=== PATIENT | male | born 1945 | race African-American/Black ===

== ENCOUNTER 2018-04-02 16:02 | Observation (INO) | payer MEDICARE ==
[2018-04-02 18:32] LABS: Troponin I 0.016 ng/mL (< 0.028)
[2018-04-02] MEDS ORDERED: Senokot S 8.6-50 MG TAB PO PRN (20:59)
[2018-04-02] MEDS ORDERED: Acetaminophen 650 MG Suppository PR PRN (20:59)
[2018-04-02] MEDS ORDERED: Bisacodyl 5 MG TAB PO PRN (20:59)
[2018-04-02] MEDS ORDERED: Calcium Carbonate 500 MG ChewTAB PO PRN (20:59)
[2018-04-02] MEDS ORDERED: Acetaminophen 325 MG TAB PO PRN (20:59)
[2018-04-02] MEDS ORDERED: Nitroglycerin 0.4 MG TAB (25 Tab Bottle) PO PRN (20:59)
[2018-04-02 21:52] LABS: Troponin I 0.014 ng/mL (< 0.028)
[2018-04-03 00:43] LABS: #Basophils 0.1 thou/uL (0.0-0.2); #Eosinphils 0.1 thou/uL (0.0-0.7); #Lymphocytes 1.7 thou/uL (1.20-3.40); #Monocytes 0.2 thou/uL (0.11-0.59); #Neutrophils 1.6 thou/uL (1.40-6.50); %Basophils 1.9 % (0.0-1.0); %Eosinophils 1.7 % (0.0-10.0); %Lymphocytes 46.1 % (21.0-51.0); %Monocytes 6.3 % (0.0-10.0); Hemoglobin 12.4 g/dL (14.0-18.0); Mean Corpuscular HGB CONC 35.1 g/dL (32.0-36.0); Mean Corpuscular Hemoglobin 30.2 pg (27.0-31.0); Mean Platelet Volume 8.4 fL (7.4-10.4); Platelet Count 138 thou/uL (130-400); RBC Distribution Width 13.4 % (11.5-14.5); Red Blood Cell (RBC) Count 4.11 mill/uL (4.70-6.10); White Blood Cell (WBC) Count 3.7 thou/uL (4.8-10.8)
[2018-04-03 00:59] VITALS: BMI 29.0
[2018-04-03 01:02] LABS: Troponin I Less than 0.010 ng/mL (< 0.028)
[2018-04-03 01:05] LABS: Albumin 3.6 g/dL (3.4-4.8); Anion Gap 13 mmol/L (10-20); BUN (Urea Nitrogen) 18 mg/dL (8.4-25.7); BUN/Creatinine Ratio 11.69; Calc. Creatinine Clearance 65 mL/min (70-130); Calcium 8.9 mg/dL (7.8-10.44); Carbon Dioxide 24 mmol/L (23-31); Cardiac Risk 3.5 (Less than 4.5); Chloride 106 mmol/L (98-107); Cholesterol 129 mg/dl (< 200 Desired); Estimated GFR-MDRD 54; Glucose 263 mg/dL (80-115); HDL Cholesterol 37 mg/dL (>60 Neg Risk); LDL Cholesterol, Calculated 62 mg/dL; Phosphorus 3.5 mg/dL (2.3-4.7); Potassium 4.5 mmol/L (3.5-5.1); Sodium 138 mmol/L (136-145); Triglycerides 150 mg/dL (Less than 150)
[2018-04-03] MEDS: Famotidine/PF 20 mg/2ml Vial SLOW IVP SCH ×3 (01:48→20:10)
[2018-04-03] MEDS: Famotidine 20 MG TAB PO SCH ×3 (01:50→20:57)
[2018-04-03] MEDS: Sodium Chloride 0.9% 1,000 ML IV SCH ×3 (01:51→21:01)
[2018-04-03] MEDS: Nitroglycerin 2% Ointment 1 INCH/1 GM Packet TOP SCH ×4 (01:52→20:57)
--- NOTE | 2018-04-03 06:40 | HP ---
CHIEF COMPLAINT: Chest pain. HISTORY OF PRESENT ILLNESS: This is a 72-year-old male with past medical history significant for hypertension, diabetes mellitus type 2, and coronary artery disease, presenting with chest pain which is located substernal, 4/10 in nature. Patient stated that this chest pressure which started on the day of admission. Patient admits to using cocaine, opioids, and cannabinoids and states that now he has been having chest pain, status post using these polysubstance. The patient stated that the chest pain was left-sided, substernal, pressure-like in nature and radiated to the neck. At this point, patient denies any fever, chills, headaches, dizziness, chest pain, palpitations, abdominal pain, constipation, diarrhea, hematuria, dysuria, hematochezia, or melena. REVIEW OF SYSTEMS: All systems have been reviewed and are negative at this time. PAST MEDICAL HISTORY: 1. Diabetes mellitus type 2. 2. Hypertension. 3. Coronary artery disease. FAMILY HISTORY: Reviewed and noncontributory to this visit. SURGICAL HISTORY: Surgical history of hernia repair, left LFCA surgery. PSYCH HISTORY: PTSD. SOCIAL HISTORY: Patient drinks socially. Patient uses marijuana. Former tobacco user. Patient smokes cigarettes. Patient abuses cocaine. Patient lives at home alone. ALLERGIES: NO KNOWN DRUG ALLERGIES. CURRENT MEDICATIONS: The patient takes: 1. Lisinopril 10 mg. 2. Metformin 500 mg. 3. Simvastatin 20 mg. PHYSICAL EXAMINATION: VITAL SIGNS: Patient's blood pressure is 153/71, pulse of 91, respiratory rate of 18, temperature of 98.2, and O2 saturation of 100% on room air. GENERAL: Patient is awake, alert, and oriented x3, not in acute distress. Patient is lying in bed comfortably. HEENT: Normocephalic and atraumatic. Pupils are equally round and reactive to light. Extraocular movements are intact. No scleral icterus. No conjunctival pallor. Mucous membranes moist. NECK: Trachea is midline. Full range of motion. No JVD. Supple. LUNGS: Clear to auscultation bilaterally. No wheezing, no rales, no rhonchi appreciated. CARDIAC: Positive S1 and S2. Regular rate and rhythm. No murmurs, no gallops, no rubs appreciated. ABDOMEN: Soft, nontender, and nondistended. Positive bowel sounds in all quadrants. No guarding, no rigidity. EXTREMITIES: Patient has 5/5 upper extremity strength and 5/5 lower extremity strength. Good pulses bilaterally at the upper and lower extremities. NEUROLOGIC: Cranial nerves 2 through 12 grossly intact. No neurologic deficits noted. SKIN: Warm, dry, and intact. DIAGNOSTIC DATA: EKG showed normal sinus rhythm, with a rate of 86. There is some ST wave abnormality and some T-wave abnormalities seen, questionable for possible ischemia. LABORATORY DATA: 1. WBC 3.7, hemoglobin is 12.4, hematocrit is 35.3, and platelet is 138. 2. Chemistry; sodium is 138, potassium is 4.5, chloride is 106, carbon dioxide of 24, BUN is 18, creatinine is 1.54, and glucose is 263. ASSESSMENT AND PLAN: This is a 72-year-old male being admitted for: 1. Chest pain due to cocaine use. At this point, patient stated that he used cocaine, and urine drug tox has confirmed patient's polysubstance abuse. At this point, we are going to treat the patient supportively. We are going to follow up morning labs. We have consulted Cardiology. We will follow up with Cardiology and we will follow up on echo which has been ordered. 2. Diabetes mellitus type 2, uncontrolled. At this time, we will start the patient on insulin sliding scale. We are going to monitor the patient closely. We will try and keep patient's blood sugars between 140 to 180. 3. Hypertension. Controlled at this time. We will monitor the patient's blood pressures and we will treat accordingly if blood pressure becomes elevated. 4. DVT, GI prophylaxis. Job ID: [id number]
[2018-04-03] MEDS ORDERED: Aspirin 325 MG TAB PO SCH (09:00)
[2018-04-03] MEDS: Enoxaparin Sodium 40 MG/0.4 ML SYRINGE SC SCH (09:20)
--- NOTE | 2018-04-03 13:23 | CON ---
DATE OF CONSULTATION: 04/03/2018 REASON FOR CONSULTATION: Chest pain. HISTORY OF PRESENT ILLNESS: Mr. Tan is a pleasant 72-year-old gentleman, who comes to the hospital for chest pain. He uses cocaine every time he gets a cheque. He gets them twice a month. His last use about 2 days ago. He started having pain the next day. It would not go away, so he decided to come in for further evaluation. So far, his troponins have remained negative and his echo is unremarkable. He is currently chest pain free now. He has noted that he has been getting chest pain every time he uses cocaine and now he is convinced that he is going to have to stop using this. PAST MEDICAL HISTORY: 1. Type 2 diabetes. 2. Hypertension. 3. History of coronary artery disease, which was mild in the past. FAMILY HISTORY: No early coronary artery disease. SURGICAL HISTORY: Hernia repair. SOCIAL HISTORY: Social alcohol use. Uses marijuana and cocaine. Former tobacco user. Used to smoke cigarettes, but not for long time. OUTPATIENT MEDICATIONS: Include; 1. Lisinopril 10 mg a day. 2. Metformin 500 mg a day. 3. Simvastatin 20 mg a day. ALLERGIES: NO KNOWN DRUG ALLERGIES. REVIEW OF SYSTEMS: A 12-point review of systems was done and was found to be negative unless stated in the history of present illness. PHYSICAL EXAMINATION: VITAL SIGNS: Temperature 98.6, pulse 70, respiratory rate 16, saturating 99% on room air, blood pressure 146/83. GENERAL: Awake, alert, and oriented x3. No distress. HEENT: Normocephalic, atraumatic. NECK: Supple. LUNGS: Clear. CARDIOVASCULAR: S1, S2. No S3 or S4. No murmurs. ABDOMEN: Soft. Positive bowel sounds. EXTREMITIES: No edema. SKIN: Warm and dry. LABORATORY DATA: Laboratory work was reviewed. CBC was reviewed. Chemistry was reviewed. Troponin is negative x4. Toxicology is positive for opiates, cocaine, and cannabis. Echocardiogram was reviewed, shows an EF of 50% to 55%, grade 1 diastolic dysfunction with mild MR and mild TR. ASSESSMENT: 1. Chest pain, likely related to cocaine use. 2. Substance abuse. 3. Hypertension. PLAN: 1. I spoke with Mr. Tan about possibly doing a stress test or heart catheterization if this continued. He states that he will try to just stay away from cocaine and if this makes his pain completely go away, then there is nothing else to do, he will just have to stop I gave him a card and stated if this pain continues, we will have to do more further studies especially with history of smoking and hypertension and diabetes. He understands, verbalized understanding of this and agrees that he will come back to see us if he starts having chest pain. I did state that I wanted to see him in 1 month in followup for re-evaluation, he states that he will see how he feels. 2. He can be discharged home from the cardiac perspective. We will add baby aspirin to his regimen at 81 mg a day. 3. We will sign off. Thank you for letting us take care of your patient. We will follow up in the office in 1 month. Job ID: [id number]
--- NOTE | 2018-04-03 17:16 | PRG ---
DATE OF SERVICE: 04/03/2018 SUBJECTIVE: The patient is seen and examined at bedside. He is not having any complaints to offer. There is no chest pain. He is not short of breath. OBJECTIVE: VITAL SIGNS: Blood pressure is 131/72, pulse is 80, temperature is 98.1, respiratory rate is 16, O2 saturation is 96% on room air. HEENT: His head is atraumatic and normocephalic. Eyes are PERRLA. Sclerae are nonicteric. Oral mucosa is moist. NECK: Supple. LUNGS: Clear. HEART: S1, S2 normal. No S3. No S4. No any murmur. ABDOMEN: Soft, nontender, nondistended. EXTREMITIES: No clubbing, cyanosis, or edema. NEUROLOGICAL: He is alert and oriented x4. There is no any motor or sensory deficits present. Cranial nerves are intact. LABORATORY DATA: Showed white count of 3.7, hemoglobin of 12.4, hematocrit 35.3, platelet count 138. Creatinine 1.54. Glucose ranging from 153 to 233. The rest of chemistry within normal limits. Three sets of troponin I within normal limits. Echocardiogram results showed ejection fraction of the left ventricle estimated at 50% to 55%. Grade 1 diastolic dysfunction. Mildly dilated RV with normal RV systolic function. Moderately dilated left atrium, moderately enlarged right atrium size. Mild mitral regurgitation. Aortic valve sclerosis, but opens well, and mild tricuspid regurgitation. IMPRESSION: 1. Chest pain related to cocaine use, resolved. The patient was seen by Cardiology. Dr. Napier, wants to do followup with him for cardiac evaluation in the future and he is okay to discharge him home from a cardiac point of view. 2. Renal failure. Unclear etiology, acute on chronic versus chronic. I do not have any documentation about his renal function prior to this admission. [facility] is [facility]. We will obtain ultrasound on his kidneys. We will continue IV fluids. We will check his UA and creatinine with urine lytes. 3. Normocytic anemia. We will do iron studies. 4. Diabetes mellitus, type 2. 5. Hypertension. 6. History of coronary artery disease. PLAN: As I mentioned above, ultrasound on the kidneys, urinalysis, urine lytes. IV fluids to continue, and to recheck his BMP tomorrow morning. Job ID: [id number]
[2018-04-03 17:33] LABS: Iron 82 ug/dL (65-175); Iron Binding Capacity, Total 223 mcg/dL (261-462)
[2018-04-03 18:16] LABS: Bilirubin Negative (Negative); Blood, Urine Negative (Negative); Clarity CLEAR (Clear); Glucose, Urine (Dipstick) 100 mg/dL (Negative); Leukocyte Negative (Negative); Nitrite Negative (Negative); Protein, Urine (Dipstick) Negative (Neg-Trace); pH, Urine 7.5 (5.0-9.0)
[2018-04-03 18:19] LABS: Bacteria/HPF None Seen HPF (None Seen); Hyaline Casts/LPF 0-3 HYALINE CAST LPF (0-3 Hyaline); Pathc Cast-AUWi Flag 0.14 (0-2.49); RBC/HPF 0-3 HPF (0-3); Squamous Epithelial 0-3 HPF (0-3); WBC/HPF 0-3 HPF (0-3)
[2018-04-03 18:30] LABS: Potassium, Urine 40.5 mmol/L
--- NOTE | 2018-04-03 20:46 | ULT ---
RENAL SONOGRAM: 04/03/18 HISTORY: Renal failure. COMPARISON: None available. FINDINGS: The right kidney demonstrates a normal sonographic appearance without evidence of a renal mass, renal calculus or hydronephrosis. The right kidney measures 11.1 cm x 3.6 cm. The left kidney measures 12.8 cm x 5.6 cm. There are scattered anechoic lesions seen in the kidney wi th superior pole anechoic cystic structure measuring 2.4 cm and lower pole anechoic cystic structure measuring 1.6 cm. Two additional very tiny anechoic exophytic structures seen of the superior and inf erior pole of the left kidney as well. These regions demonstrate sonographic characteristics most com patible with cysts. There is no hydronephrosis or renal calculus seen on the left. The urinary bladder is partially seen and has a normal sonographic appearance. Urinary bladder volume is 209.2 mL. The ureteral jets are visualized bilaterally on color flow evaluation. IMPRESSION: 1. Left renal cysts. 2. Normal appearing right kidney. 3. No evidence of hydronephrosis bilaterally. POS: RALPH
[2018-04-04 05:32] LABS: Anion Gap 11 mmol/L (10-20); BUN (Urea Nitrogen) 15 mg/dL (8.4-25.7); Calc. Creatinine Clearance 72 mL/min (70-130); Carbon Dioxide 26 mmol/L (23-31); Chloride 107 mmol/L (98-107); Estimated GFR-MDRD 61; Glucose 171 mg/dL (80-115); Potassium 4.3 mmol/L (3.5-5.1); Sodium 140 mmol/L (136-145)
[2018-04-04] MEDS: Nitroglycerin 2% Ointment 1 INCH/1 GM Packet TOP SCH ×2 (05:47→15:07)
[2018-04-04] MEDS: Sodium Chloride 0.9% 1,000 ML IV SCH ×2 (06:39→13:10)
[2018-04-04] MEDS: Enoxaparin Sodium 40 MG/0.4 ML SYRINGE SC SCH (08:53)
[2018-04-04] MEDS: Famotidine/PF 20 mg/2ml Vial SLOW IVP SCH (08:53)
[2018-04-04] MEDS: Famotidine 20 MG TAB PO SCH (08:53)
--- NOTE | 2018-04-04 10:37 | DIS ---
DATE OF ADMISSION: 04/02/2018 DATE OF DISCHARGE: 04/04/2018 BACKEND DEVELOPER: Drew Napier MD DIAGNOSES AT THE TIME OF DISCHARGE: 1. Chest pain, likely related to cocaine use. 2. Substance abuse. 3. Diabetes mellitus. 4. Hypertension. 5. Normocytic anemia of chronic disease. 6. Renal insufficiency. I suspect this was acute on chronic problem since it improved with some IV fluids. HOSPITAL COURSE: The patient is a 72-year-old male with past medical history of hypertension, diabetes mellitus type 2 and coronary artery disease, who presented to the emergency room with complaints of chest pain, which was located substernally, rated at scale. The patient stated that he is using cocaine, opiates, and cannabinoids. This was status post using those poly-substances. The pain was located more to the left side, was pressure-like in nature and was radiating to the neck. He denied any fever, chills, headache, dizziness, chest pain, palpitations, abdominal pain, constipation, diarrhea, hematuria, dysuria, hematochezia and melena. While in the emergency room, his white count was 3.7, hemoglobin 12.4, hematocrit 35.3, platelet count 138,000. Sodium 130, potassium 4.5, chloride 106, CO2 of 24, BUN 18, creatinine 1.54, and glucose was 263. EKG showed normal sinus rhythm with rate of [address] wave abnormality and some T-wave abnormalities and questionable ischemia. The patient got admitted to observation unit. He was monitored while in the hospital. He was seen by vocational nurse, Dr. Napier, who recommended to stay away from cocaine obviously and if he is able to do that, follow up with him on outpatient basis in approximately one month. Aspirin 81 mg once a day was added to his regimen. The patient underwent echocardiogram, which showed ejection fraction of the left ventricle estimated at 50% to 55% and mild diastolic dysfunction along with mildly dilated RV with normal RV systolic function, moderately dilated left atrium and moderately enlarged right atrium size. Mild mitral regurgitation, aortic valve sclerosis, but opens well and mild tricuspid regurgitation were all noticed on echocardiogram. Also, he underwent some workup of his anemia and renal insufficiency. At the time of admission, his creatinine was 1.54 with IV fluids. He improved to 1.39. Iron studies showed iron level of 82, total iron binding capacity 223, saturation was 37, and ferritin was 132.99, so this was suggestive of chronic anemia, most likely related to some chronic mild renal insufficiency. His glycemia was ranging from 153 to 190, and he will continue on his diabetic regimen. Urinalysis showed 100 of glucose. Urine creatinine , urine sodium 138, and urine potassium was 40.5. His stay in the hospital was uneventful. He underwent ultrasound on his kidneys, which showed two cysts in the left kidney and normal appearing right kidney. There was no any evidence of hydronephrosis bilaterally. The patient is doing well. He does not have much complaints to offer. He does not have much of any pain. PHYSICAL EXAMINATION: VITAL SIGNS: Blood pressure is 136/71, pulse is 82, temperature is 98.6, respiratory rate is 16, and O2 saturation is 97% on room air. LUNGS: Clear. HEART: S1 and S2 normal. No S3. No S4. No any murmur. ABDOMEN: Soft, nontender, nondistended. EXTREMITIES: No clubbing, cyanosis, or edema. NEUROLOGICAL: He is intact. DISCHARGE INSTRUCTIONS: DIET: He is discharged home on a diabetic diet, 2000 calories. ACTIVITIES: Activities as tolerated. FOLLOWUP: He will follow up with [facility] in 1 week and he will follow up with Dr. Napier, for further cardiac evaluation since he had some significant findings on his echocardiogram of course, if he quit his polysubstance abuse. TIME SPENT: The discharge is less than 30 minutes. Job ID: [id number]
[2018-04-04 12:09] VITALS: BP 176/92; TEMP 99.1
== END 2018-04-04 15:11 | disposition home or self-care (01) ==
LOC: ERS 16:02 → 2SW 20:20
PROVIDERS: ADMIT Internal Medicine; ATTEND Internal Medicine
DX: R07.9 Chest pain, unspecified (principal); F14.10 Cocaine abuse, uncomplicated; F11.10 Opioid abuse, uncomplicated; F12.10 Cannabis abuse, uncomplicated; I10 Essential (primary) hypertension; D64.9 Anemia, unspecified; I25.2 Old myocardial infarction; I36.1 Nonrheumatic tricuspid (valve) insufficiency; I34.0 Nonrheumatic mitral (valve) insufficiency; I35.8 Other nonrheumatic aortic valve disorders; E11.9 Type 2 diabetes mellitus without complications; F43.10 Post-traumatic stress disorder, unspecified; N28.9 Disorder of kidney and ureter, unspecified; Z87.891 Personal history of nicotine dependence; Z79.84 Long term (current) use of oral hypoglycemic drugs; Z79.82 Long term (current) use of aspirin; Z79.4 Long term (current) use of insulin; Z79.899 Other long term (current) drug therapy; Z98.890 Other specified postprocedural states
CPT/HCPCS: 76770; 80048; 80061; 80069; 81001; 82436; 82570; 82728; 82962 ×2; 83540; 83550; 84133; 84300; 84484 ×2; 85025; 93005; 93306; 94760 ×3; 96360; 96361 ×2; 96372 ×2; 99285; G0378 ×2; 36415; 36416; J1650

== ENCOUNTER 2023-09-19 19:42 | Observation (INO) | payer MEDICARE, OTHER ==
[2023-09-19 21:30] VITALS: BMI 23.3
[2023-09-19] MEDS ORDERED: Ondansetron ODT 4 MG TAB PO PRN (21:45)
[2023-09-19] MEDS ORDERED: Ondansetron PF 4 MG/2 ML Vial IVP PRN (21:45)
[2023-09-19] MEDS ORDERED: HumaLOG 300 UNITS/3 ML VIAL SC PRN (22:22)
[2023-09-19] MEDS ORDERED: Dextrose 50% Abboject 50 ML SYRINGE SLOW IVP PRN (22:22)
[2023-09-19] MEDS ORDERED: Glucagon 1 MG/ML KIT IM PRN (22:22)
[2023-09-19] MEDS ORDERED: Insulin Regular, Human 100 UNIT/ML 10 ML VIAL SC PRN (22:22)
[2023-09-19] MEDS ORDERED: Dextrose 5% in Water 1,000 ML IV PRN (22:22)
[2023-09-19] MEDS ORDERED: Lorazepam 1 MG TAB PO PRN (22:28)
[2023-09-19] MEDS ORDERED: Electrolyte Replacement Protocol 1 EACH FS SCH (22:30)
[2023-09-19] MEDS: Lactated Ringer's 1,000 ML IV SCH (23:58)
[2023-09-19] MEDS: Thiamine HCl 200 MG/2 ML VIAL SLOW IVP SCH (23:58)
[2023-09-20 00:49] LABS: Phosphorus 3.2 mg/dL (2.3-4.7)
[2023-09-20 00:52] LABS: Magnesium 1.9 mg/dL (1.6-2.6)
[2023-09-20 00:53] LABS: Troponin I 0.013 ng/mL (< 0.028)
[2023-09-20 02:20] LABS: Amphetamine Not Detected (NotDetected); Bacteria/HPF 1+ HPF (None Seen); Barbiturates Screen Not Detected (NotDetected); Benzodiazepine Screen Not Detected (NotDetected); Bilirubin Negative (Negative); Blood, Urine Negative (Negative); CAUTI Indications for Culture Alt mental st,lethar; Calcium Oxalate Crystals 1+ HPF (None Seen); Clarity Clear (Clear); Cocaine Metabolite Screen Detected (NotDetected); Glucose, Urine (Dipstick) Normal (Negative); Ketone, Urine Negative (Negative); Leukocyte 500 Leu/uL (Negative); Methadone Not Detected (NotDetected); Methamphetamine Not Detected (NotDetected); Nitrite Negative (Negative); Opiate Screen Not Detected (NotDetected); Oxycodone Screen Not Detected (NotDetected); Phencyclidine (PCP) Not Detected (NotDetected); Protein, Urine (Dipstick) 10 mg/dL (Neg-Trace); RBC/HPF 0-3 HPF (0-3); Specific Gravity, Urine 1.012 (1.002-1.036); Squamous Epithelial None Seen HPF (0-3); THC/Cannabinoid Screen Not Detected (NotDetected); Tricyclic Screen Not Detected (NotDetected); Urobilinogen Normal mg/dL (Less than 2); pH, Urine 7.5 (5.0-9.0)
[2023-09-20 02:21] LABS: Urine Culture Reflex Yes Yes
[2023-09-20 05:00] LABS: #Basophils Less than 0.03 10x3/uL (0.0-0.2); %Basophils 0.2 % (0.0-1.0); %Eosinophils 1.5 % (0.0-10.0); %Monocytes 4.7 % (0.0-10.0); %Neutrophils 52.4 % (42.0-75.0); Hematocrit 28.6 % (42.0-52.0); Hemoglobin 9.6 g/dL (14.0-18.0); Mean Corpuscular HGB CONC 33.6 g/dL (32.0-36.0); Mean Corpuscular Hemoglobin 28.9 pg (27.0-31.0); Mean Corpuscular Volume 86.1 fL (78.0-98.0); Mean Platelet Volume 10.8 fL (7.4-10.4); Platelet Count 127 10x3/uL (130-400); RBC Distribution Width 15.5 % (11.5-14.5); Red Blood Cell (RBC) Count 3.32 mill/uL (4.70-6.10)
[2023-09-20 05:14] LABS: Iron 62 ug/dL (65-175); Iron Binding Capacity, Total 175 mcg/dL (261-462)
[2023-09-20 05:19] LABS: Anion Gap 14 mmol/L (10-20); BUN (Urea Nitrogen) 29 mg/dL (8.4-25.7); Calc. Creatinine Clearance 33 mL/min (70-130); Calcium 8.3 mg/dL (7.8-10.44); Carbon Dioxide 17 mmol/L (23-31); Chloride 115 mmol/L (98-107); Estimated GFR 30; Glucose 122 mg/dL (83-110); Iron 65 ug/dL (65-175); Iron Binding Capacity, Total 169 mcg/dL (261-462); Potassium 4.5 mmol/L (3.5-5.1); Sodium 141 mmol/L (136-145)
[2023-09-20 05:46] LABS: Ferritin 172.59 ng/mL (22-322); Thyroid Stimulating Hormone 0.396 uIU/mL (0.35-4.94)
[2023-09-20] MEDS: Multivit, Therapeutic 1 TAB PO SCH (08:40)
[2023-09-20] MEDS: Folic Acid 1 MG TAB PO SCH (08:40)
[2023-09-20] MEDS: Famotidine 20 MG TAB PO SCH (08:40)
[2023-09-20] MEDS ORDERED: Heparin 5,000 UNITS/ML VIAL SC SCH (09:00)
[2023-09-20] MEDS: Magnesium 2 GM/50 ML(in water) 2 GM in Premix 1 BAG IVPB SCH (10:37)
[2023-09-20 12:23] VITALS: BP 170/80; TEMP 97.8
[2023-09-20] MEDS ORDERED: Lorazepam 1 MG TAB PO PRN (22:28)
[2023-09-22] MEDS ORDERED: Thiamine 100 MG TAB PO SCH (22:30)
== END 2023-09-20 12:44 | disposition home or self-care (01) ==
LOC: 2NO 21:05
PROVIDERS: ADMIT Family Medicine; ATTEND Internal Medicine
PROC: B246ZZZ Ultrasonography of Right and Left Heart (ICD-10-PCS; principal; 2023-09-19)
DX: R55 Syncope and collapse (principal); I12.9 Hypertensive chronic kidney disease with stage 1 through stage 4 chronic kidney disease, or unspecified chronic kidney disease; N18.4 Chronic kidney disease, stage 4 (severe); D63.1 Anemia in chronic kidney disease; E11.22 Type 2 diabetes mellitus with diabetic chronic kidney disease; E78.5 Hyperlipidemia, unspecified; F10.90 Alcohol use, unspecified, uncomplicated; F19.10 Other psychoactive substance abuse, uncomplicated; N40.1 Benign prostatic hyperplasia with lower urinary tract symptoms; N13.8 Other obstructive and reflux uropathy; F12.10 Cannabis abuse, uncomplicated; Z79.84 Long term (current) use of oral hypoglycemic drugs; Z79.899 Other long term (current) drug therapy; Z98.890 Other specified postprocedural states; Z79.4 Long term (current) use of insulin
CPT/HCPCS: 80048; 80306; 81001; 82607; 82728; 82962 ×2; 83540; 83550; 83605; 83735; 84100; 84443; 84484; 85025; 87086; 93306; 96374; 96375; G0378 ×2; J3411; J3475; J7120; 36415; 36416

== ENCOUNTER 2024-03-08 13:36 | Outpatient (CLI) | payer OTHER ==
[2024-03-08 14:47] LABS: #Basophils Less than 0.03 10x3/uL (0.0-0.2); %Eosinophils 2.1 % (0.0-10.0); %Lymphocytes 46.2 % (21.0-51.0); %Monocytes 5.8 % (0.0-10.0); %Neutrophils 45.6 % (42.0-75.0); Hematocrit 31.9 % (42.0-52.0); Hemoglobin 10.8 g/dL (14.0-18.0); Mean Corpuscular HGB CONC 33.9 g/dL (32.0-36.0); Mean Corpuscular Volume 85.8 fL (78.0-98.0); Mean Platelet Volume 10.5 fL (7.4-10.4); Platelet Count 142 10x3/uL (130-400); RBC Distribution Width 14.6 % (11.5-14.5); Red Blood Cell (RBC) Count 3.72 mill/uL (4.70-6.10)
[2024-03-08 15:00] LABS: Anion Gap 11 mmol/L (10-20); BUN (Urea Nitrogen) 27 mg/dL (8.4-25.7); Calc. Creatinine Clearance 0 mL/min (70-130); Calcium 8.8 mg/dL (7.8-10.44); Carbon Dioxide 24 mmol/L (23-31); Chloride 112 mmol/L (98-107); Estimated GFR 32; Glucose 98 mg/dL (83-110); Potassium 4.8 mmol/L (3.5-5.1); Sodium 142 mmol/L (136-145)
== END 2024-03-08 13:37 | disposition home or self-care (01) ==
LOC: LABBT 13:36
PROVIDERS: ATTEND Urology
DX: Z01.812 Encounter for preprocedural laboratory examination (principal); N40.1 Benign prostatic hyperplasia with lower urinary tract symptoms; R33.9 Retention of urine, unspecified; N13.30 Unspecified hydronephrosis; N13.8 Other obstructive and reflux uropathy; N18.4 Chronic kidney disease, stage 4 (severe); N32.81 Overactive bladder; K40.90 Unilateral inguinal hernia, without obstruction or gangrene, not specified as recurrent
CPT/HCPCS: 80048; 85025; 93005; 93010

== ENCOUNTER 2024-03-22 08:05 | Day surgery (SDC) | payer OTHER ==
[2024-03-08 13:53] VITALS: BMI 24.3
[2024-03-22] MEDS ORDERED: Sodium Chloride 0.9% 100 ML ONE (10:29)
[2024-03-22] MEDS ORDERED: cefTRIAXone (ROCEPHIN) 1 GM VIAL ONE (10:29)
[2024-03-22] MEDS ORDERED: PROPOFOL 20 ML ONE (10:32)
[2024-03-22] MEDS ORDERED: fentaNYL PF 100 MCG/2 ML SYRINGE ONE ×3 (10:33→12:13)
[2024-03-22 10:45] LABS: Prothrombin Time 13.6 sec (12.0-14.7)
[2024-03-22 10:46] LABS: PTT 23.4 sec (22.9-36.1)
[2024-03-22] MEDS ORDERED: PHENYLEPHRINE-NS 100 MCG/ML 10 ML SYRINGE ONE (11:00)
[2024-03-22] MEDS ORDERED: Lidocaine 1% PF 5 ML VIAL ONE (11:00)
[2024-03-22] MEDS ORDERED: Dexamethasone 4 mg/ml Vial ONE (11:05)
[2024-03-22] MEDS ORDERED: Ondansetron PF 4 MG/2 ML Vial ONE (11:05)
[2024-03-22] MEDS ORDERED: ePHEDrine Sulfate 50 MG/10 ML VIAL ONE (11:11)
[2024-03-22] MEDS ORDERED: Phenazopyridine HCl 100 MG TAB ONE (12:12)
[2024-03-22] MEDS ORDERED: Oxybutynin 5 MG TAB ONE (12:13)
== END 2024-03-22 15:04 | disposition home or self-care (01) ==
LOC: SDC 08:05
PROVIDERS: ATTEND Urology
PROC: 0TBB8ZX Excision of Bladder, Via Natural or Artificial Opening Endoscopic, Diagnostic (ICD-10-PCS; principal; 2024-03-22)
PROC: 0VT08ZZ Resection of Prostate, Via Natural or Artificial Opening Endoscopic (ICD-10-PCS; principal; 2024-03-22)
DX: N40.1 Benign prostatic hyperplasia with lower urinary tract symptoms (principal); N13.8 Other obstructive and reflux uropathy; R33.8 Other retention of urine; N30.90 Cystitis, unspecified without hematuria; D41.4 Neoplasm of uncertain behavior of bladder; I12.9 Hypertensive chronic kidney disease with stage 1 through stage 4 chronic kidney disease, or unspecified chronic kidney disease; N18.9 Chronic kidney disease, unspecified; E11.22 Type 2 diabetes mellitus with diabetic chronic kidney disease; E78.5 Hyperlipidemia, unspecified; M19.90 Unspecified osteoarthritis, unspecified site
CPT/HCPCS: 36415; 85610; 85730; 88305; A4333; J0696; J1100; J2405; J2704

== ENCOUNTER 2024-04-06 21:31 | Emergency (ER) | payer OTHER, SELFPAY ==
[2024-04-06 23:14] LABS: #Basophils Less than 0.03 10x3/uL (0.0-0.2); %Basophils 0.2 % (0.0-1.0); %Eosinophils 1.7 % (0.0-10.0); %Lymphocytes 32.4 % (21.0-51.0); %Monocytes 7.5 % (0.0-10.0); Hematocrit 32.8 % (42.0-52.0); Hemoglobin 11.2 g/dL (14.0-18.0); Mean Corpuscular HGB CONC 34.1 g/dL (32.0-36.0); Mean Corpuscular Hemoglobin 28.6 pg (27.0-31.0); Mean Corpuscular Volume 83.7 fL (78.0-98.0); Mean Platelet Volume 10.2 fL (7.4-10.4); Platelet Count 147 10x3/uL (130-400); RBC Distribution Width 13.7 % (11.5-14.5); Red Blood Cell (RBC) Count 3.92 mill/uL (4.70-6.10)
[2024-04-06 23:21] LABS: ALT (SGPT) 13 U/L (8-55); AST (SGOT) 21 U/L (5-34); Albumin 3.7 g/dL (3.4-4.8); Alkaline Phosphatase 74 U/L (40-110); Anion Gap 11 mmol/L (10-20); BUN (Urea Nitrogen) 36 mg/dL (8.4-25.7); Bilirubin, Total 1.1 mg/dL (0.2-1.2); Calc. Creatinine Clearance 0 mL/min (70-130); Calcium 8.9 mg/dL (7.8-10.44); Carbon Dioxide 23 mmol/L (23-31); Chloride 107 mmol/L (98-107); Estimated GFR 23; Globulin 3.2 g/dL (2.4-3.5); Glucose 101 mg/dL (83-110); Lipase 32 U/L (8-78); Potassium 4.9 mmol/L (3.5-5.1); Protein, Total 6.9 g/dL (5.8-8.1); Sodium 136 mmol/L (136-145)
[2024-04-06 23:24] LABS: Bacteria/HPF None Seen HPF (None Seen); Bilirubin Negative (Negative); Blood, Urine 3+ (Negative); CAUTI Indications for Culture Pelvic or flank pain; Clarity Clear (Clear); Glucose, Urine (Dipstick) Normal (Negative); Ketone, Urine Negative (Negative); Leukocyte 500 Leu/uL (Negative); Nitrite Negative (Negative); Protein, Urine (Dipstick) 50 mg/dL (Neg-Trace); RBC/HPF None Seen HPF (0-3); Specific Gravity, Urine 1.009 (1.002-1.036); Squamous Epithelial 0-3 HPF (0-3); Urobilinogen Normal mg/dL (Less than 2); WBC/HPF 21-50 HPF (0-3); pH, Urine 6.5 (5.0-9.0)
[2024-04-06 23:30] LABS: Urine Culture Reflex Yes Yes
== END 2024-04-07 00:12 | disposition home or self-care (01) ==
LOC: ERS 21:31
DX: N30.01 Acute cystitis with hematuria (principal); T83.511A Infection and inflammatory reaction due to indwelling urethral catheter, initial encounter; E11.9 Type 2 diabetes mellitus without complications; E78.5 Hyperlipidemia, unspecified; I10 Essential (primary) hypertension
CPT/HCPCS: 36415; 80053; 81001; 83690; 85025; 87077; 87086; 99283